=== PATIENT | male | born 1970 | race Caucasian/White ===

== ENCOUNTER 2024-12-11 12:52 | Emergency (ER) | payer MEDICAID, SELFPAY ==
[2024-12-11 12:52] VITALS: BMI 31.6
[2024-12-11 13:29] VITALS: BP 194/136; BP 218/140; PULSE 101; RESP 20; TEMP 37.2; O2SAT 95
--- NOTE | 2024-12-11 13:40 | XR_ITS ---
Examination: Testicular sonography complete TECHNIQUE: Grayscale sonographic images testes, assessment arterial inflow venous outflow Doppler spectral analysis carful analysis Date and time: December 11, 2024, 1423 hours INDICATIONS: Left testicular swelling beginning 3 months ago, worse today. FINDINGS: Right testis 4.7 cm epididymis 17 mm Arterial flow testicle. No testicular mass Minimal varicoceles Left testis 4.4 cm epididymis 16mm Arterial flow testicle. No testicular mass Moderate varicoceles IMPRESSION: No testicular torsion or testicular mass Moderate left varicoceles
--- NOTE | 2024-12-11 13:40 | XR_ITS ---
Examination: CT abdomen and pelvis without contrast. Coronal 3-D reconstructions. Sagittal 2-D reconstructions. Date and time of exam:December 11, 2024, 1710 hours, comparison July 02, 2008. INDICATIONS: Bilateral flank pain with gross hematuria beginning 2 days ago., History kidney stones CTDI: vol (mGy): 14.5 DLP: (mGycm): . 1029. Technique: Axial images of the abdomen have been obtained, 3 mm slice thickness Intravenous contrast material has not been administered. Low dose protocols were performed. One or more of the following dose reduction techniques were used; automated exposure control, adjustment of the mA and/or KV according to patient size, use of iterative reconstruction technique. Findings: No focal liver or splenic lesions No gallstones No pancreatic mass 11 x 12 x 13 cm upper pole left renal tumor Prominent venous channels medial to the spleen and medial to the large tumor mass Aorta normal size No malignant ascites Normal appendix No bowel obstruction Colonic diverticulosis Intact urinary bladder Moderate disc narrowing L5-S1 IMPRESSION: 11 x 12 x 13 cm upper pole left renal tumor mass, renal cell carcinoma Recommend MRI abdomen follow-up, pre and postcontrast, for staging
--- NOTE | 2024-12-11 13:40 | PD.EDRME ---
Rapid Medical Screening Exam RME Arrival date/time: 12/11/24 12:52 54-year-old male presents to the emergency room today for complaint of hematuria Incidentally patient noted to be hypertensive patient reports he has not take his blood pressure medication last 5 days Chief Complaint: Urogenital-Male Time Seen by Provider: 12/11/24 13:30 Vital signs: Vital Signs Temperature 98.9 F 12/11/24 13:29 Pulse Rate 101 H 12/11/24 13:29 Respiratory Rate 20 12/11/24 13:29 Blood Pressure 218/140 H 12/11/24 13:29 Pulse Oximetry (%) 95 12/11/24 13:29 Oxygen Delivery Method Room Air 12/11/24 13:29
[2024-12-11 14:10] LABS: Basophils # (Auto) 0.2 Thou/mm3 (0.0-0.2); Basophils % (Auto) 1 % (0-2.5); Eosinophils # (Auto) 0.1 Thou/mm3 (0.0-0.5); Eosinophils % (Auto) 0 % (0-10); Hematocrit 58.6 % (41.0-53.0); Hemoglobin 19.1 g/dL (13.5-16.0); Immature Granulocytes Auto 0.19 Thou/mm3 (0.00-0.00); Lymphocytes # (Auto) 4.0 Thou/mm3 (1.0-4.8); Lymphocytes % (Auto) 23 % (10-50); Mean Corpuscular HGB Conc 32.6 g/dl (31.0-37.0); Mean Corpuscular Hemoglobin 26.6 pg (25.0-35.0); Mean Corpuscular Volume 82 fL (80-100); Monocytes # (Auto) 1.6 Thou/mm3 (0.0-0.8); Monocytes % (Auto) 9 % (0-12); Neutrophils # (Auto) 11.1 Thou/mm3 (1.8-7.7); Neutrophils % (Auto) 65 % (37-80); Nucleated Red Blood Cell # 0.00 Thou/mm3 (0.00-0.00); Nucleated Red Blood Cell % 0 /100 WBC (0); Platelet Count 347 Thou/mm3 (140-440); RDW Standard Deviation 44.9 fL (35.1-43.9); Red Blood Count 7.18 Miln/mm3 (4.50-5.90); White Blood Count 17.1 Thou/mm3 (3.8-10.6)
[2024-12-11 14:28] LABS: Alanine Aminotransferase 58 U/L (10-49); Albumin, Serum 4.8 gm/dL (3.5-5.0); Albumin/Globulin Ratio 1.4 (1.2-2.2); Alkaline Phosphatase 89 U/L (46-116); Anion Gap 13 (7-16); Aspartate Amino Transferase 60 U/L (0-34); BUN/Creatinine Ratio 13 Ratio (12-20); Bilirubin,Total 1.7 mg/dL (0.3-1.2); Blood Urea Nitrogen 16 mg/dL (9-23); Calcium 12.3 mg/dL (8.3-10.6); Calcium (Corrected) 12.3 mg/dL (8.5-10.1); Carbon Dioxide 25.0 mMol/L (20.0-31.0); Chloride 100 mMol/L (98-107); Creatinine (Component) 1.2 mg/dL (0.6-1.3); Estimated Creatinine Clearance 84.0 mL/min (>60); Globulin 3.5 gm/dL (2.3-3.5); Glucose 189 mg/dL (74-106); Lipase 29 U/L (12-53); Osmolality,Calculated 281 (275-295); Potassium 3.7 mMol/L (3.4-5.1); Sodium 138 mMol/L (136-145); Total Protein 8.3 gm/dL (5.7-8.2); eGFR > 60 See Note
[2024-12-11 15:07] VITALS: BP 196/111; PULSE 107
[2024-12-11] MEDS: HYDROcodone/APAP 5/325 TABLET 1 TAB PO (15:07)
[2024-12-11 17:04] LABS: Collection Type, Urine Clean Catch; RBC,Urine 0 /hpf (0-3); Squamous Epithelial Cell,Urine 0 /hpf (0-5); WBC,Urine 0 /hpf (0-5)
[2024-12-11 18:09] LABS: Bilirubin,Urine Negative (Negative); Blood,Urine 3+ (Negative); Color,Urine Dark-Brown (Lt Yel-Yel); Culture Indicated,Urine Not Indicated; Glucose, Urine Negative (Negative); Ketones,Urine Trace (Negative); Leukocyte Esterase,Urine Positive (Negative); Nitrite,Urine Negative (Negative); PH,Urine 6.0 (5.0-7.0); Protein,Urine 2+ (Neg - Trace); Specific Gravity,Urine 1.031 (1.001-1.035); Urobilinogen,Urine Negative mg/dL (0.0-1.0)
[2024-12-11 18:12] LABS: Clarity,Urine Bloody (Clear/Hazy)
[2024-12-11 18:23] VITALS: BP 196/111; PULSE 107
[2024-12-11] MEDS: METOPROLOL TARTRATE 25 MG TABLET 75 MG PO (18:23)
--- NOTE | 2024-12-11 18:38 | PD.EDMALE ---
ED Male Genitalurinary RME/HPI General Chief complaint: Urogenital-Male Stated complaint: BLOOD IN URINE Time Seen by Provider: 12/11/24 13:30 Arrival date/time: 12/11/24 12:52 RME / HPI RME / HPI Narrative: 12/11/24 12:52 54-year-old male presents to the emergency room today for complaint of hematuria Incidentally patient noted to be hypertensive patient reports he has not take his blood pressure medication last 5 days See MDM for HPI documentation Related Data Home Medications ?Medication ?Instructions ?Recorded ?Confirmed HBP MED 1 tab PO QDAY ##0 08/11/16 HIGH CHOLESTEROL MED 1 tab PO QDAY ##0 08/11/16 Levothyroxine * (SYNTHROID *) 100 mcg PO ACBR #0 tabs 08/11/16 metformin 500 mg tablet 500 mg PO BIDAC #0 tabs 08/11/16 (Glucophage) Previous Rx's ?Medication ?Instructions ?Recorded albuterol sulfate 90 mcg/actuation 1 inh inhalation QID PRN shortness 05/10/21 aerosol inhaler (ProAir HFA) of breath or wheezing #8.5 grams acetaminophen 300 mg-codeine 30 mg 2 tab PO Q8H PRN pain #20 tabs 12/11/24 tablet metoprolol succinate 100 mg 100 mg PO BID #60 tabs 12/11/24 tablet,extended release 24 hr Allergies Allergy/AdvReac Type Severity Reaction Status Date / Time No Known Allergies Allergy Verified 12/11/24 12:55 Review of Systems Review of Systems Systems Reviewed: All systems reviewed, normal except as documented Past Medical History Past Medical History CARDIAC: Positive Hypertension Social History SMOKING STATUS: Never smoker SUBSTANCE USE: marijuana ED Exam Narrative Physical exam: See [facility] for Physical Exam documentation Course Quality Measures none Orders Category Date Time Status CT abdomen pelvis wo con Stat Exams 12/11/24 13:40 Completed US testicular Stat Exams 12/11/24 13:40 Completed CBC Stat Lab 12/11/24 13:56 Completed Comprehensive Metabolic Panel Stat Lab 12/11/24 13:56 Completed Lipase Stat Lab 12/11/24 13:56 Completed UA, C/S IF [Urinalysis, C/S if Indicated] Stat Lab 12/11/24 16:53 Completed HYDROcodone*/APAP 5/325 [[place] 5/325] Med 12/11/24 13:40 Discontinued 1 tab PO X1 ONE Metoprolol Tartrate [Lopressor] Med 12/11/24 18:13 Discontinued 75 mg PO X1 ONE cloNIDine HCL [Catapres] Med 12/11/24 13:40 Discontinued 0.2 mg PO X1 ONE Vital Signs Vital signs: Vital Signs Temperature 98.9 F 12/11/24 13:29 Pulse Rate 101 H 12/11/24 13:29 Respiratory Rate 20 12/11/24 13:29 Blood Pressure 218/140 H 12/11/24 13:29 Pulse Oximetry (%) 95 12/11/24 13:29 Oxygen Delivery Method Room Air 12/11/24 13:29 Urogenital - Male MDM Narrative MDM Narrative:: Scribe Attestation: I, Brittnee Kirk, am scribing for and in the presence of Dr. Meadows. This section includes all my notes and documentations, including HPI, PE, and ED course. Houston Meadows MD HPI: 54 y/o male with Hx of Marijuana use and HTN presents with blood in the urine and left flank x several days. No other complaints. ROS: All negative except as documented in HPI. Physical Exam: General: Alert and oriented. No acute distress when remaining still. High BP noted. Eyes: Conjunctivae and lids clear. ENT: No nasal congestion. Neck: Supple. Heart: RRR. Lungs: No respiratory distress. Good air movement. No rhonchi, wheezing, rales. Abdomen: Soft and nontender. Normal bowel sounds. No distension. No rebound or guarding. Back: No CVA tenderness. Skin: Warm and dry. Neuro: Alert and oriented X 3. I reviewed all diagnostic test results: My review of the Testicular US report is NAD. My review of the Abdomen/Pelvis CT report is: 11 x 12 x 13 cm upper pole left renal tumor mass, renal cell carcinoma. Blood tests and urine tests remarkable for hematuria. At this point, diagnoses include: Hematuria (probably renal cancer), Hypertension Treatment here included: Lopressor 75 mg, [place] 5/325, Catapres 0.2 mg. Significant improvement noted. Recommended outpatient care. Based on my best medical judgment, made decision no further evaluation or treatment indicated at this time. Patient understands and agrees to the discharge instructions customized and printed, see below. Discharge instructions from Dr. Meadows: 1. You have a softball sized tumor in your left kidney causing the blood in your urine. 2. For good hydration, increase oral fluid and maintain clear urine. If dark or yellow, increase oral fluid. 3. Tylenol with Codeine for severe pain. 4. Take Metoprolol 100 mg 2X daily. You can't stop taking your BP med even for a few days. You will live longer with lower BP and slower heart rate. 5. See a private doctor on 12/12/24 for recheck. Ask to review all test results and official radiology reports, to make sure you receive all necessary follow-ups and monitoring. Ask for referrals to see Urologist and [employer] for your kidney tumor. You need to make sure you don't have cancer. 6. Seek immediate medical care with worsening or with any concerns. Houston Meadows MD Patient data External records reviewed:: [facility] previous records (Reviewed prior ED records from 05/10/21. Patient was seen for Cough.) Clinical information provided by:: patient Social determinants that could affect healthcare access:: substance use (Marijuana) Patient has the following chronic illnesses:: Hypertension How is presenting disease/condition affected by chronic disease/condition?: uneffected by Evaluation data The following diagnostics were reviewed and interpreted by me:: lab results and radiology exam(s) Lab and/or radiology exams considered but not ordered:: None Interpretation Summary: I reviewed all diagnostic test results: My review of the Testicular US report is NAD. My review of the Abdomen/Pelvis CT report is: 11 x 12 x 13 cm upper pole left renal tumor mass, renal cell carcinoma. Blood tests and urine tests remarkable for hematuria. Medications / Prescriptions Medications or Prescriptions considered but not ordered:: None Medication administrations:: Medication Administration History Discontinued Medications Hydrocodone Bitart/Acetaminophen (Hydrocodone/Apap 5/325 Tablet) 1 tab PO X1 ONE Stop: 12/11/24 13:41 Last Admin: 12/11/24 15:07 Dose: 1 tab Documented By: MICHAEL Clonidine (Clonidine Hcl 0.1 Mg Tablet) 0.2 mg PO X1 ONE Stop: 12/11/24 13:41 Last Admin: 12/11/24 15:07 Dose: 0.2 mg Documented By: MICHAEL Metoprolol Tartrate (Metoprolol Tartrate 25 Mg Tablet) 75 mg PO X1 ONE Stop: 12/11/24 18:14 Last Admin: 12/11/24 18:23 Dose: 75 mg Documented By: CARO Lopressor 75 mg, [place] 5/325, Catapres 0.2 mg Consultations Consultation(s) initiated? (list below): No Diagnosis Urogenital Male Differential Diagnosis: urinary tract infection, urethritis, epididymitis, genital herpes simplex, prostatitis, inguinal hernia and other (Cystitis, Renal calculi, Renal cancer) Most likely diagnosis given after review of the tests above:: Hematuria, Hypertension Admission Indicated Admission indicated?: not indicated Explain why admission is indicated or not indicated:: With significant improvement and no condition needing emergent intervention, there was no indication for admission. Admission Request Was there a request for admission?: No Disposition Plan Disposition Plan: Discharge Discharge Attestation Discharge Attestation: The patient and all family members were given an opportunity to ask questions and understood the discharge instructions. Discharge instructions specifically effects, indications for sooner follow up or return to the emergency department, and the expected course of current diagnosis. Patient condition: Stable Discharge Plan Plan Patient Disposition: HOME (Self Care) Prescriptions/Referrals Prescriptions/Med Rec: New acetaminophen-codeine 300-30 mg tablet 2 tab PO Q8H MDD 6 PRN (Reason: pain) Qty: 20 0RF metoprolol succinate 100 mg tablet extended release 24 hr 100 mg PO BID Qty: 60 1RF No Action metformin [Glucophage] 500 MG tablet 500 mg PO BIDAC Qty: 0 HBP MED 1 tab PO QDAY Qty: 0 HIGH CHOLESTEROL MED 1 tab PO QDAY Qty: 0 Levothyroxine * (SYNTHROID *) 100 MCG tablet 100 mcg PO ACBR Qty: 0 albuterol sulfate [ProAir HFA] 90 mcg/actuation HFA aerosol inhaler 1 inh inhalation QID PRN (Reason: shortness of breath or wheezing) Qty: 8.5 0RF Referrals: Jeramy Mujica MD [Primary Care Provider] - In 1 week Problem List Clinical Impression: Hematuria, Hypertension Patient/Caregiver Discharge Instructions Discharge Activity: activity as tolerated Education Materials: ED Hematuria, ED Hypertension, Established Additional Instructions: Discharge instructions from Dr. Meadows: 1. You have a softball sized tumor in your left kidney causing the blood in your urine. 2. For good hydration, increase oral fluid and maintain clear urine. If dark or yellow, increase oral fluid. 3. Tylenol with Codeine for severe pain. 4. Take Metoprolol 100 mg 2X daily. You can't stop taking your BP med even for a few days. You will live longer with lower BP and slower heart rate. 5. See a private doctor on 12/12/24 for recheck. Ask to review all test results and official radiology reports, to make sure you receive all necessary follow-ups and monitoring. Ask for referrals to see Urologist and [employer] Officer for your kidney tumor. You need to make sure you don't have cancer. 6. Seek immediate medical care with worsening or with any concerns. Print Language: Thai Stand Alone Forms: [facility] Award Info., Patient Portal Info Letter
[2024-12-11 18:51] VITALS: BP 168/108; PULSE 95; RESP 18; TEMP 37; O2SAT 95
== END 2024-12-11 19:04 | disposition home or self-care (01) ==
PROVIDERS: Nurse Practitioner Primary Care; Emergency Provider Emergency Medicine; PCP Student in an Organized Health Care Education/Training Program
DX: C64.2 Malignant neoplasm of left kidney, except renal pelvis (principal); I10 Essential (primary) hypertension
CPT/HCPCS: 36415; 74176; 76870; 80053; 81001; 83690; 85025; 99283; A9270

== ENCOUNTER → 2024-12-29 | Outpatient (CLI) | payer MEDICAID, SELFPAY ==
--- NOTE | 2024-12-29 14:49 | XR_ITS ---
Examination: PA lateral chest 2 views TECHNIQUE: Upright PA lateral chest 2 views Date and time: December 29, 2024 1520 hours, INDICATIONS: Left renal tumor diagnosis 3 weeks ago FINDINGS: Normal heart size. Lungs are clear. Moderate osteopenia. IMPRESSION: No active disease.
== END | disposition home or self-care (01) ==
PROVIDERS: PCP Student in an Organized Health Care Education/Training Program; Referring Provider Surgery; Visit Provider Surgery
DX: C64.9 Malignant neoplasm of unspecified kidney, except renal pelvis (principal)
CPT/HCPCS: 71046

== ENCOUNTER 2025-01-01 02:02 | Emergency (ER) | payer MEDICAID, SELFPAY ==
[2025-01-01] VITALS (8 sets, daily range): BP systolic 115–166; BP diastolic 82–103; PULSE 58–75; RESP 14–18; TEMP 36.4–37; O2SAT 90–99; BMI 30.7
--- NOTE | 2025-01-01 02:19 | PD.EDMALE ---
ED Male Genitalurinary RME/HPI General Chief complaint: Urogenital-Male Stated complaint: TESTICLE PAIN Time Seen by Provider: 01/01/25 02:21 Arrival date/time: 01/01/25 02:02 RME / HPI RME / HPI Narrative: See [facility] for Dr. Meadows's HPI documentation. Related Data Home Medications ?Medication ?Instructions ?Recorded ?Confirmed HBP MED 1 tab PO QDAY ##0 08/11/16 HIGH CHOLESTEROL MED 1 tab PO QDAY ##0 08/11/16 Levothyroxine * (SYNTHROID *) 100 mcg PO ACBR #0 tabs 08/11/16 metformin 500 mg tablet 500 mg PO BIDAC #0 tabs 08/11/16 (Glucophage) Previous Rx's ?Medication ?Instructions ?Recorded albuterol sulfate 90 mcg/actuation 1 inh inhalation QID PRN shortness 05/10/21 aerosol inhaler (ProAir HFA) of breath or wheezing #8.5 grams acetaminophen 300 mg-codeine 30 mg 2 tab PO Q8H PRN pain #20 tabs 12/11/24 tablet metoprolol succinate 100 mg 100 mg PO BID #60 tabs 12/11/24 tablet,extended release 24 hr Allergies Allergy/AdvReac Type Severity Reaction Status Date / Time No Known Allergies Allergy Verified 12/11/24 12:55 Review of Systems Review of Systems Systems Reviewed: All systems reviewed, normal except as documented Past Medical History Past Medical History CARDIAC: Positive Hypertension Social History SMOKING STATUS: Current every day smoker SUBSTANCE USE: marijuana ED Exam Narrative Physical exam: See [facility] for Dr. Meadows's physical exam documentation. Course Quality Measures none Orders Category Date Time Status CT Screening NOW Care 01/01/25 02:24 Active Fair to [place] Routine Care 01/01/25 05:32 Ordered Saline [Insert IV] NOW Care 01/01/25 02:22 Active Straight [In and Out Catheter] X1 Care 01/01/25 02:[address] abdomen pelvis w con Stat Exams 01/01/25 02:24 Taken US abdomen limited Stat Exams 01/01/25 02:24 Taken US testicular Stat Exams 01/01/25 02:24 Taken Alcohol, Blood Medical Stat Lab 01/01/25 02:44 Completed Amylase Stat Lab 01/01/25 02:44 Completed Bilirubin,Direct Stat Lab 01/01/25 02:44 Completed Blood Culture (Lab) Stat Lab 01/01/25 02:56 Received CBC Stat Lab 01/01/25 02:44 Completed CMP [Comprehensive Metabolic Panel] Stat Lab 01/01/25 02:44 Completed CRP [C-Reactive Protein] Stat Lab 01/01/25 02:44 Completed Drug Screen,Urine Stat Lab 01/01/25 02:34 Completed ESR [Sed Rate (ESR)] Stat Lab 01/01/25 02:44 Completed Lactate (Lactic Acid) Stat Lab 01/01/25 02:44 Results Lipase Stat Lab 01/01/25 02:44 Completed Magnesium Stat Lab 01/01/25 02:44 Completed Procalcitonin Stat Lab 01/01/25 02:44 Completed UA, C/S IF [Urinalysis, C/S if Indicated] Stat Lab 01/01/25 02:34 Completed HYDROmorphone INJ [Dilaudid Inj] Med 01/01/25 02:23 Discontinued 2 mg IVP X1 ONE Ketorolac Inj [Toradol Inj] Med 01/01/25 02:23 Discontinued 30 mg IVP X1 ONE Ondansetron Inj [Zofran Inj] Med 01/01/25 02:23 Discontinued 4 mg IVP X1 ONE Sodium Chloride 0.9% 1000 ml [Ns] 1,000 ml Med 01/01/25 02:23 Discontinued IV 999 mls/hr Sodium Chloride 0.9% 1000 ml [Ns] 1,000 ml Med 01/01/25 03:42 Discontinued IV 999 mls/hr Vital Signs Vital signs: Vital Signs Temperature 97.7 F 01/01/25 02:27 Pulse Rate 71 01/01/25 02:27 Respiratory Rate 18 01/01/25 02:27 Blood Pressure 166/103 H 01/01/25 02:27 Pulse Oximetry (%) 98 01/01/25 02:27 Oxygen Delivery Method Room Air 01/01/25 02:27 Urogenital - Male MDM Narrative MDM Narrative:: This section includes all my notes and documentations, including HPI, PE, and ED course. Houston Meadows MD HPI: 54yo male here with about a month history of left flank pain and left testicular pain. Couple of weeks ago, evaluation here indicated probable left renal cancer. For about a week, he reports worsening pain and worsening hematuria. Did not follow-up with outside doctors. No fever. No vomiting. No other complaints. ROS: All negative except as documented in HPI. Physical Exam: General: Alert and oriented. In severe pain. Eyes: Conjunctivae and lids clear. ENT: No nasal congestion. Neck: Supple. Heart: RRR. Lungs: No respiratory distress. Good air movement. No rhonchi, wheezing, rales. Abdomen: Soft with equivocal tenderness in left flank region. Normal bowel sounds. No distension. No rebound or guarding. Back: Equivocal left CVA tenderness. Skin: Warm and dry. Neuro: Alert and oriented X 3. Genitalia: Normal circumcised penis. Enlarged left testicle, size of a plum, with no erythema or calor. I reviewed all diagnostic test results. My review of the CT abdomen pelvis report is 15 cm left renal mass. Blood tests remarkable for WBC 12.7, ESR 49, Lactic Acid 2.5, Glucose 237. UA remarkable for 1382 RBCs. Abdominal ultrasound and testicular ultrasound pending. At this point, diagnoses include: Left renal cancer Left hydronephrosis Left flank pain Severe hematuria Left enlarged testicle Amphetamine abuse Treatment here included: Dilaudid Toradol Zofran IV fluid Entered order for three-way Fair catheter placement. At 6 AM on 01/01/2025, the care of the patient was transferred to Dr. Wolff. Houston Meadows MD Patient data External records reviewed:: [facility] previous records (Per chart review, patient was seen here on 12/11/24 for hematuria.) Clinical information provided by:: patient Social determinants that could affect healthcare access:: none Patient has the following chronic illnesses:: HTN How is presenting disease/condition affected by chronic disease/condition?: uneffected by Evaluation data The following diagnostics were reviewed and interpreted by me:: lab results and radiology exam(s) Lab and/or radiology exams considered but not ordered:: none Interpretation Summary: I reviewed all diagnostic test results. My review of the CT abdomen pelvis report is 15 cm left renal mass. Blood tests remarkable for WBC 12.7, ESR 49, Lactic Acid 2.5, Glucose 237. UA remarkable for 1382 RBCs. Medications / Prescriptions Medications or Prescriptions considered but not ordered:: none Medication administrations:: Medication Administration History Discontinued Medications Hydromorphone HCl (Hydromorphone Inj 2 Mg/Ml Vial) 2 mg IVP X1 ONE Stop: 01/01/25 02:24 Last Admin: 01/01/25 02:45 Dose: 2 mg Documented By: Admin: 01/01/25 02:44 Dose: 2 mg Documented By: DT Sodium Chloride (Ns) 1,000 mls @ 999 mls/hr IV .Q1H1M ONE Stop: 01/01/25 03:23 Last Infusion: 01/01/25 03:47 Dose: Infused Documented By: Admin: 01/01/25 02:46 Dose: 999 mls/hr Documented By: DT Sodium Chloride (Ns) 1,000 mls @ 999 mls/hr IV .Q1H1M ONE Stop: 01/01/25 04:42 Last Infusion: 01/01/25 05:29 Dose: Infused Documented By: Admin: 01/01/25 04:25 Dose: 999 mls/hr Documented By: DT Ketorolac Tromethamine (Ketorolac Inj 30 Mg/Ml Vial) 30 mg IVP X1 ONE Stop: 01/01/25 02:24 Last Admin: 01/01/25 02:43 Dose: 30 mg Documented By: DT Ondansetron HCl (Ondansetron Inj 2 Mg/Ml Inj 2 Ml) 4 mg IVP X1 ONE; Protocol Stop: 01/01/25 02:24 Last Admin: 01/01/25 02:42 Dose: 4 mg Documented By: DT Dilaudid, Toradol, Zofran, IV fluid Consultations Consultation(s) initiated? (list below): No Diagnosis Urogenital Male Differential Diagnosis: urinary tract infection, urethritis, epididymitis, prostatitis, acute retention of urine, inguinal hernia and other (Renal cancer) Most likely diagnosis given after review of the tests above:: Left renal cancer Left hydronephrosis Left flank pain Severe hematuria Left enlarged testicle Amphetamine abuse Admission Indicated Admission indicated?: not indicated Explain why admission is indicated or not indicated:: Complete diagnostic test results are pending. Admission Request Was there a request for admission?: No Disposition Plan Disposition Plan: other (specify) (Signed out to Dr. Wolff at 6 AM.) Discharge Plan Prescriptions/Referrals Prescriptions/Med Rec: No Action metformin [Glucophage] 500 MG tablet 500 mg PO BIDAC Qty: 0 HBP MED 1 tab PO QDAY Qty: 0 HIGH CHOLESTEROL MED 1 tab PO QDAY Qty: 0 Levothyroxine * (SYNTHROID *) 100 MCG tablet 100 mcg PO ACBR Qty: 0 albuterol sulfate [ProAir HFA] 90 mcg/actuation HFA aerosol inhaler 1 inh inhalation QID PRN (Reason: shortness of breath or wheezing) Qty: 8.5 0RF acetaminophen-codeine 300-30 mg tablet 2 tab PO Q8H MDD 6 PRN (Reason: pain) Qty: 20 0RF metoprolol succinate 100 mg tablet extended release 24 hr 100 mg PO BID Qty: 60 1RF Referrals: Temporary Provider,ED [Physician, Emergency Medicine] - In 1 week Problem List Clinical Impression: Cancer of left kidney, Left flank pain, Hematuria, Amphetamine abuse, Hydronephrosis, left, Testicular swelling, left Patient/Caregiver Discharge Instructions Print Language: Mexican
--- NOTE | 2025-01-01 02:24 | XR_ITS ---
Examination: Abdomen sonogram, Limited Date and time of exam: January 01, 2025, 0414 hrs. Indications: Abdominal pain today with elevated liver function tests on laboratory examination Technique: Real-time whyte scale transabdominal sonographic images of the upper abdomen obtained. Findings: Normal gallbladder. Normal common bile duct 0.4 cm Pancreas obscured by bowel gas. Liver 17.8 cm fatty infiltration no focal liver lesions. Normal alveolar portal venous flow Patent IVC Impression: Normal gallbladder Normal common bile duct Mild hepatomegaly fatty infiltration.
--- NOTE | 2025-01-01 02:24 | XR_ITS ---
Examination: Testicular sonography complete Technique: Grayscale sonographic images testes, assessment arterial inflow venous outflow Doppler spectral analysis carful analysis. Date and time: January 01, 2025, 0419 hrs. Indications: Onset testicular pain today Findings: Right testis 3.9 cm, epididymis not visualized. Arterial flow testicle. No testicular mass Left testis 4.8 cm Epididymis not visualized. Arterial flow testicle. No testicular mass Small (vesicles. Impression: No testicular torsion or testicular mass Mild left varicocele
--- NOTE | 2025-01-01 02:24 | XR_ITS ---
Examination: CT abdomen with intravenous contrast CT pelvis with intravenous contrast 2-D coronal reconstructions 2-D sagittal reconstructions Date and time of exam:January 01, 2025, 0400 hrs. Indications: Left testicular pain left flank pain beginning today.. CTDI: vol (mGy) 27.9. DLP: (mGycm) 1323. Technique: Multiple axial sections of the abdomen and pelvis have been obtained. 64 slice high-resolution scanner used. 3 mm axial sections have been obtained, post intravenous injection 60 cc [id number]. 2-D sagittal, coronal reconstructions obtained. Low dose protocols were performed. One or more of the following dose reduction techniques were used; automated exposure control, adjustment of the mA and/or KV according to patient size, use of iterative reconstruction technique. Findings: Mild pneumonia at the lung bases. Fatty infiltration throughout the liver. No gallstones. 16 cm upper pole left renal cell carcinoma Left lateral periaortic lymph nodes subcentimeter No bowel obstruction Normal appendix Colonic diverticulosis Probable blood in the urinary bladder but clinical correlation advised Mild prostatomegaly Prominent left spermatic cord Impression: 16 cm upper pole left renal cell carcinoma Recommend MRI abdomen pelvis follow-up pre and postcontrast for staging Probable blood in the urinary bladder, recommend urinary bladder sonography follow-up Para-aortic lymphadenopathy, consider PET CT scan follow-up
[2025-01-01] MEDS: ONDANSETRON INJ 2 MG/ML INJ 2 ML 4 MG IVP (02:42)
[2025-01-01] MEDS: KETOROLAC INJ 30 MG/ML VIAL IVP (02:43)
[2025-01-01] MEDS: HYDROmorphone INJ 2 MG/ML VIAL IVP ×2 (02:44→02:45)
[2025-01-01] MEDS: SODIUM CHLORIDE 0.9% 1000 ML 1,000 ML 999 ML IV ×2 (02:46→04:25)
[2025-01-01 02:47] LABS: Collection Type, Urine Clean Catch; Squamous Epithelial Cell,Urine 0 /hpf (0-5)
[2025-01-01 02:57] LABS: Lactate (Lactic Acid) 2.5 mMol/L (0.4-2.0)
[2025-01-01 03:06] LABS: Amphetamine/Methamp Scrn,U Positive (Negative); Barbiturate Screen,Urine Negative (Negative); Benzodiazepines Screen,Urine Negative (Negative); Benzoylecgonine Screen, Ur Negative (Negative); Bilirubin,Urine Negative (Negative); Blood,Urine 3+ (Negative); Clarity,Urine Turbid (Clear/Hazy); Color,Urine Lt-Brown (Lt Yel-Yel); Culture Indicated,Urine Not Indicated; Fentanyl Screen,Urine Negative (Negative); Glucose, Urine Negative (Negative); Ketones,Urine Negative (Negative); Leukocyte Esterase,Urine Negative (Negative); Nitrite,Urine Negative (Negative); Opiate Screen,Urine Negative (Negative); PH,Urine 6.5 (5.0-7.0); Protein,Urine 1+ (Neg - Trace); RBC,Urine 1382 /hpf (0-3); Specific Gravity,Urine 1.019 (1.001-1.035); THC Screen,Urine Positive (Negative); Urobilinogen,Urine Negative mg/dL (0.0-1.0); WBC,Urine 4 /hpf (0-5)
[2025-01-01 03:09] LABS: Sed Rate (ESR) 49 mm/hr (0-20)
[2025-01-01 03:11] LABS: Basophils # (Auto) 0.2 Thou/mm3 (0.0-0.2); Basophils % (Auto) 1 % (0-2.5); Eosinophils # (Auto) 0.3 Thou/mm3 (0.0-0.5); Eosinophils % (Auto) 2 % (0-10); Hematocrit 58.3 % (41.0-53.0); Hemoglobin 18.9 g/dL (13.5-16.0); Immature Granulocytes Auto 0.10 Thou/mm3 (0.00-0.00); Lymphocytes # (Auto) 2.9 Thou/mm3 (1.0-4.8); Lymphocytes % (Auto) 23 % (10-50); Mean Corpuscular HGB Conc 32.4 g/dl (31.0-37.0); Mean Corpuscular Hemoglobin 27.2 pg (25.0-35.0); Mean Corpuscular Volume 84 fL (80-100); Monocytes # (Auto) 1.4 Thou/mm3 (0.0-0.8); Monocytes % (Auto) 11 % (0-12); Neutrophils # (Auto) 8.0 Thou/mm3 (1.8-7.7); Neutrophils % (Auto) 63 % (37-80); Nucleated Red Blood Cell # 0.00 Thou/mm3 (0.00-0.00); Nucleated Red Blood Cell % 0 /100 WBC (0); Platelet Count 287 Thou/mm3 (140-440); RDW Standard Deviation 44.8 fL (35.1-43.9); Red Blood Count 6.96 Miln/mm3 (4.50-5.90); White Blood Count 12.7 Thou/mm3 (3.8-10.6)
[2025-01-01 03:33] LABS: Alanine Aminotransferase 33 U/L (10-49); Albumin, Serum 4.5 gm/dL (3.5-5.0); Albumin/Globulin Ratio 1.3 (1.2-2.2); Alcohol, Blood Medical < 3.0 mg/dL (0-10.0); Alkaline Phosphatase 93 U/L (46-116); Amylase 190 U/L (30-118); Anion Gap 9 (7-16); Aspartate Amino Transferase 36 U/L (0-34); BUN/Creatinine Ratio 10 Ratio (12-20); Bilirubin,Direct 0.3 mg/dL (0.0-0.3); Bilirubin,Total 0.6 mg/dL (0.3-1.2); Blood Urea Nitrogen 12 mg/dL (9-23); C-Reactive Protein 1.7 mg/dL (0.0-0.9); Calcium 11.1 mg/dL (8.3-10.6); Calcium (Corrected) 11.1 mg/dL (8.5-10.1); Carbon Dioxide 30.2 mMol/L (20.0-31.0); Chloride 99 mMol/L (98-107); Creatinine (Component) 1.2 mg/dL (0.6-1.3); Estimated Creatinine Clearance 82.7 mL/min (>60); Globulin 3.4 gm/dL (2.3-3.5); Glucose 237 mg/dL (74-106); Magnesium 2.0 mg/dL (1.6-2.6); Osmolality,Calculated 283 (275-295); Potassium 4.3 mMol/L (3.4-5.1); Procalcitonin 0.12 ng/ml (0.0-0.49); Sodium 138 mMol/L (136-145); Total Protein 7.9 gm/dL (5.7-8.2); eGFR > 60 See Note
--- NOTE | 2025-01-01 05:24 | PRELIM_ITS ---
CT scan of the abdomen and pelvis with intravenous contrast (axial sections with sagittal and coronal reformats) January 01, 2025 0400 hours Clinical History: Left flank pain testicle edema/red/calor/pain. Comparison: No prior study is available for comparison. Findings: Mild atelectasis/infiltrate in bilateral lung bases. The liver, gallbladder, adrenal glands, pancreas, spleen and right kidney are unremarkable. A 12.7 x 12.6 x 15 cm mass in the upper pole of the left kidney. Prominent collateral vasculature in the left upper quadrant. The appendix is normal, best seen on image 160. Prostatic hypertrophy. 5 cm filling defect in the urinary bladder base. Bowel caliber is normal. The abdominal wall is unremarkable. No lymphadenopathy. Mild left hydronephrosis. No acute osseous process. The left spermatic cord is prominent. The left gonadal vein is ectatic. Impression: 1. Mild atelectasis/infiltrate in bilateral lung bases. 2. 15 cm left renal mass consistent with renal cell carcinoma. 3. Left upper quadrant collateral veins, may be secondary to hypervascularity of the renal mass versus portal venous hypertension. 4. Mild left hydronephrosis, without visible ureteral obstruction. 5. Intraluminal lesion in the urinary bladder, may represent clot versus prostatic hypertrophy. 6. Edematous left spermatic cord, may be secondary to gonadal vein hypertension. Consider scrotal ultrasound for further evaluation. Cannot exclude cellulitis Or testicular pathology. Discussion Details: Results verbally communicated to : Dr. Meadows at 05:17 AM 01/01/2025 Report Electronically Signed By: Quinten Colindres 01/01/2025 5:23:29 AM [EST]
--- NOTE | 2025-01-01 05:48 | PC.NURSE ---
TRIED TO DO MD EVANGELISTA ORDER TRIPLE WAY, TRIPLE WAY WILL NOT BE ABLE TO INSERT DUE TO PENILE OPENING IS SMALL, I TRIED 16FR BUT UNABLE TO ADVANCE IT, DR. ROSALES AWARE.
[2025-01-01 05:54] LABS: Reflex Lactate? Y
--- NOTE | 2025-01-01 05:59 | PRELIM_ITS ---
Ultrasound of the scrotum. January 01, 2025 0419 hours Clinical history: Edema erythema calor tenderness. Technique: Real-time ultrasound was performed using Duplex scanning including arterial inflow, venous outflow, color and spectral Doppler analysis of both testes. Comparison: No prior study is available for comparison. Findings: Right testicle is 3.9 x 2.3 x 3.1 cm. Left testicle is 4.8 x 2.8 x 2.4 cm. Normal arterial flow is present in the testicles bilaterally. A 4 mm left varicoceles. Testicles have normal appearance bilaterally. No hydrocele. Impression: Normal testicles. Prominent left varicoceles Report Electronically Signed By: Quinten Colindres 01/01/2025 5:59:08 AM [EST]
--- NOTE | 2025-01-01 05:59 | PRELIM_ITS ---
Ultrasound Abdomen. January 01, 2025 0414 hours Clinical history: Abdominal pain and LFT elevation Technique: Grayscale and color flow images of the abdomen are provided. Hepatic and portal veins were also imaged with color flow images. Comparison: No prior study is available for comparison. Findings: Gallbladder wall is 3 mm thick. No gallbladder sludge or calculi. Common bile duct is 4 mm diameter. Pancreas is obscured. Liver is large, 17.8 cm long. Liver is fatty infiltrated with heterogeneous parenchyma. Main portal vein is antegrade. Inferior vena cava is patent. Impression: Normal gallbladder. Fatty liver with possible cirrhosis. Report Electronically Signed By: Quinten Colindres 01/01/2025 5:58:42 AM [EST]
[2025-01-01 06:15] LABS: Lactic Acid, 3 HR 1.6 mMol/L (0.4-2.0)
--- NOTE | 2025-01-01 09:36 | PD.EDADDENDU ---
Emergency Room Addendum Addendum Narrative: Care assumed from Dr. Meadows . Past medical, surgical, social and family history reviewed. Vitals and home medications reviewed. Results and treatment plan discussed. I will assume the care of the patient at this time and will follow the patient. Please refer to the emergency department record for history and examination from initial visit. Laboratory showed a hemoglobin of 18.9, glucose of 237 and UA RBCs of 1382. Ultrasound showed left varicocele and no torsion. CAT scan of the abdomen pelvis showed a 16 cm left upper pole renal cell carcinoma. This was seen on previous exam. Patient remained stable while under my care. Patient was discharged home. He has already seen a surgeon who is referring him for urology to evaluate surgery for the renal cell carcinoma. He is going to follow-up with his primary care doctor for oncology referral. He is on his primary care doctor is in [place] and he he will follow-up in 1 day.
== END 2025-01-01 10:13 | disposition home or self-care (01) ==
PROVIDERS: Emergency Medicine; Emergency Provider Family Medicine; PCP Internal Medicine
DX: C64.2 Malignant neoplasm of left kidney, except renal pelvis (principal); R31.9 Hematuria, unspecified; N13.30 Unspecified hydronephrosis; F15.10 Other stimulant abuse, uncomplicated; N50.89 Other specified disorders of the male genital organs
CPT/HCPCS: 36415; 74177; 76705; 76870; 80053; 80307; 80320; 81001; 82150; 82248; 83605; 83690; 83735; 84145; 85025; 85652; 86140; 87040; 96361; 96374; 96375; 99284; A4314; A4649; J1171; J1885; J2405; J7030; Q9967; G0480